=== PATIENT | female | born 1990 | race Caucasian/White ===

== ENCOUNTER 2017-09-05 19:54 | Outpatient (CLI) | payer SELFPAY ==
[2017-09-05 22:25] VITALS: BP 116/67
== END 2017-09-05 22:50 | disposition home or self-care (01) ==
LOC: TRG 19:54
PROVIDERS: ATTEND Obstetrics & Gynecology
DX: O47.1 False labor at or after 37 completed weeks of gestation (principal); Z3A.39 39 weeks gestation of pregnancy
CPT/HCPCS: 59025

== ENCOUNTER 2017-09-07 13:30 | Inpatient (IN) | payer SELFPAY ==
[2017-09-07] MEDS ORDERED: BRETHINE IVP PRN (13:52)
[2017-09-07] MEDS ORDERED: MINERAL OIL PO PRN (13:52)
[2017-09-07] MEDS ORDERED: ePHEDrine SULFATE IV PRN (13:52)
[2017-09-07] MEDS ORDERED: BRETHINE SUB-Q PRN (13:52)
[2017-09-07] MEDS ORDERED: STADOL IV PRN (13:52)
[2017-09-07] MEDS ORDERED: SUBLIMAZE IV PRN (13:52)
[2017-09-07] MEDS ORDERED: PITOCin/NS 20 UNIT/1000ML DRIP 20 UNITS/1,000 ML BAG IV SCH (14:00)
[2017-09-07] MEDS ORDERED: LACTATED RINGERS 1,000 ML IV SCH (14:00)
[2017-09-07] MEDS ORDERED: POLYCILLIN/NS 2 GM/100 ML 2 GM/100 ML BAG IV ONE ×2 (14:12→15:00)
[2017-09-07 14:24] LABS: Hematocrit 35.4 % (30.3-42.9); Hemoglobin 12.2 gm/dl (10.1-14.3); Mean Corpuscular HGB Conc 35 % (30-34); Mean Corpuscular Hemoglobin 31 pg (28-32); Mean Corpuscular Volume 89 fl (79-97); Platelet Count 195 K/mm3 (140-440); Red Blood Count 3.98 M/mm3 (3.65-5.03); Red Cell Distribution Width 15.9 % (13.2-15.2)
--- NOTE | 2017-09-07 14:47 | History and Physical Report ---
History of Present Illness Date of examination: 09/07/17 Date of admission: 09/07/17 13:31 Chief complaint: Contractions History of present illness: 26yo G 5 P 2 1 1 3 at 39 weeks 2 days here with c/o contractions since 5am and spotting. She reports positive movements but denies LOF. She has been having care at [facility] starting at 8 weeks gestation. Her course was complicated by chlamydia. She was treated and had a neg NOVA. GBS is positive. Past History Past Medical History: no pertinent history Past Surgical History: cholecystectomy (2015) [employer] History: chlamydia (diagnosed 02/23/17. Negative NOVA 07/02/17) Family/Genetic History: other (kidney disease - mother; hyperthyroidism - mother ; asthma - son) Social history: single, full code - Obstetrical History Expected Date of Delivery: 09/12/17 Actual Gestation: 39 Week(s) 2 Day(s) : 5 Para: 2 Hx # Term Pregnancies: 2 Number of Pregnancies: 1 Spontaneous Abortions: 0 Induced : 1 Number of Living Children: 2 #1 Gender: Female year: 2,007 (09/2006) Birthweight: 2.268 kg (5 lbs) Method of Delivery: Vaginal Gestational age at delivery: 40 Complications: none #2 Gender: Male year: 2,010 (08/2009) Birthweight: 1.814 kg Method of Delivery: Vaginal Gestational age at delivery: 33 Complications: other (PTL/PTB) #3 Infant Gender: Male year: 2,014 (03/2014) Birthweight: 3.175 kg (7 lbs) Method of Delivery: Vaginal Gestational age at delivery: 37 Complications: none Medications and Allergies Allergies Allergy/AdvReac Type Severity Reaction Status Date / Time No Known Allergies Allergy Unverified 09/05/17 19:58 Home Medications Medication Instructions Recorded Confirmed Last Taken Type RX: No Known Home Medications [No 09/07/17 09/07/17 Unknown History Reported Home Medications] Active Meds: Active Medications Butorphanol Tartrate (Stadol) 2 mg IV Q2H PRN PRN Reason: Pain , Severe (7-10) Ephedrine Sulfate (Ephedrine Sulfate) 10 mg IV Q2M PRN PRN Reason: Hypotension Fentanyl (Sublimaze) 100 mcg IV Q2H PRN PRN Reason: Labor Pain Lactated Ringer's (Lactated Ringers) 1,000 mls @ 125 mls/hr IV DIRECT MAX Oxytocin/Sodium Chloride (Pitocin/Ns 20 Unit/1000ml Drip) 20 units in 1,000 mls @ 125 mls/hr IV DIRECT MAX Ampicillin Sodium (Polycillin/Ns 2 Gm/100 Ml) 2 gm in 100 mls @ 100 mls/hr IV ONCE ONE; Protocol Stop: 09/07/17 15:59 Mineral Oil (Mineral Oil) 30 ml PO QHS PRN PRN Reason: Constipation Terbutaline Sulfate (Brethine) 0.25 mg SUB-Q ONCE PRN PRN Reason: Hyperstimulation/Hypertonicity Terbutaline Sulfate (Brethine) 0.25 mg IVP ONCE PRN PRN Reason: Hyperstimulation/Hypertonicity Review of Systems All systems: negative - Vital Signs Vital signs: Vital Signs Temp Resp 98.0 F 18 09/07/17 13:49 09/07/17 13:49 Temp Pulse Resp BP Pulse Ox 98.0 F 97 H 18 96 09/07/17 13:49 09/07/17 14:43 09/07/17 13:49 09/07/17 14:43 - Physical Exam Cardiovascular: Regular rate, Normal S1, Normal S2, No murmurs Lungs: Positive: Clear to auscultation, Normal air movement Abdomen: Positive: normal appearance, soft Genitourinary (Female): Positive: normal external genitalia, normal perenium Vulva: both: normal Vagina: Positive: normal moisture Uterus: Positive: normal size, normal contour - Obstetrical FHR: auscultation normal, category 1 FHR comments: baseline 150, moderate variability, 15x15 accels, no decels Cervical Dilatation: 5 (per RN) Cervical Effacement Percentage: 80 (per RN) station: -2 (per RN) Uterine Contraction Frequency (min): 2-3 Uterine Contraction Pattern: Regular Uterine Contraction Intensity: Moderate Results Result Diagrams: 09/07/17 13:57 Abnormal lab results 09/07/17 Range/Units 13:57 WBC 13.5 H (4.5-11.0) K/mm3 MCHC 35 H (30-34) % RDW 15.9 H (13.2-15.2) % All other labs normal. Assessment and Plan - Patient Problems (1) 39 weeks gestation of Current Visit: Yes Status: Acute (2) Active labor at term Current Visit: Yes Status: Acute Plan to address problem: Admit to L&D with routine labor orders Anticipate vaginal delivery (3) GBS (group B Streptococcus carrier), +RV culture, currently Current Visit: Yes Status: Acute Plan to address problem: Start ampicillin for GBS prophylaxis
[2017-09-07] MEDS ORDERED: XYLOCAINE 2% INFILTRATI ONE (18:56)
[2017-09-07] MEDS ORDERED: AMPICILLIN/NS 1 GM/50 ML 1 GM/50 ML BAG IV SCH (19:00)
--- NOTE | 2017-09-07 19:12 | Procedure Note ---
OB Delivery Note - Delivery Date of Delivery: 09/07/17 (18:52) Surgeon: ADEOLA NAVARRO (CASSIE) Estimated blood loss: 300cc - Vaginal Delivery presentation: vertex Delivery position: OA Intrapartum events: meconium (thick meconium) Delivery induction: none Delivery augmentation: rupture of membranes (AROM) Delivery monitor: external FHT, external uterine Route of delivery: Delivery placenta: spontaneous (18:55) Delivery cord: 3 umbilical vessels Episiotomy: none Delivery laceration: 1st degree (left labial) Delivery repair: vicryl (3-0 vicryl) Anesthesia: local Delivery comments: of a vigorous term 7 lbs 9 oz male at 18:52. Umbilical cord double-clamped , cut and baby handed over to awaiting NICU team. Cord blood collected. Spont. delv of placenta at 18:55, [place]-side presenting. Heavy lochia present. Fundal massage and IV Pitocin bolus initiated. Fundus F/ML/U. Moderate lochia. Placenta intact, was discarded. 1st degree left labial lac noted and repaired with 3 interrupted stitches using a 3-0 vicyl needle. Light lochia. Mom and baby in stable condition. - A at 1 minute: 8 at 5 minutes: 9 Gender: Male (7 lbs 9 oz (3437 gm); 21 in)
[2017-09-07] MEDS ORDERED: PHENERGAN PO PRN (20:04)
[2017-09-07] MEDS ORDERED: DULCOLAX PR PRN (20:04)
[2017-09-07] MEDS ORDERED: TUCKS PAD TP PRN (20:04)
[2017-09-07] MEDS ORDERED: PHENERGAN PR PRN (20:04)
[2017-09-07] MEDS ORDERED: MILK OF MAGNESIA PO PRN (20:04)
[2017-09-07] MEDS ORDERED: NORCO 5/325 PO PRN (20:04)
[2017-09-07] MEDS ORDERED: BENADRYL PO PRN (20:04)
[2017-09-07] MEDS ORDERED: LANSINOH TP PRN (20:04)
[2017-09-07] MEDS ORDERED: ZOFRAN IV PRN (20:04)
[2017-09-07] MEDS ORDERED: TYLENOL PO PRN (20:04)
[2017-09-07] MEDS ORDERED: SODIUM CHLORIDE FLUSH SYRINGE 10 ML IV SCH (21:00)
[2017-09-07] MEDS ORDERED: FEOSOL PO SCH (22:00)
[2017-09-08] MEDS ORDERED: PRENATAL VITAMIN PO SCH (10:00)
[2017-09-08 10:30] LABS: Hematocrit 32.1 % (30.3-42.9); Hemoglobin 10.6 gm/dl (10.1-14.3)
--- NOTE | 2017-09-08 10:38 | Progress Note ---
Assessment and Plan - Patient Problems (1) Status post normal vaginal delivery Current Visit: Yes Status: Acute Plan to address problem: PPD 1 - stable Continue routine PP orders Discharge to home later today Follow up at [facility] in 6 weeks for exam Subjective - Subjective Date of service: 09/08/17 Principal diagnosis: s/p Normal Spontaneous Vaginal Delivery Interval history: 26yo G 5 P 3 1 1 4 s/p uncomplicated of a viable term male on 09/07/17 @ 18: 52 Patient reports: appetite normal, voiding normally, pain well controlled, bowel movement, ambulating normally : doing well, nursing well Objective - Vital Signs Latest vital signs: Vital Signs Temp Pulse Resp BP BP Pulse Ox 09/08/17 08:04 98.7 F 86 20 97/52 94 09/08/17 04:00 98.3 F 79 18 113/72 97 09/08/17 00:35 97.8 F 85 18 102/63 97 05/18 20:51 98.3 F 93 H 18 107/67 97 0518 20:10 98.4 F 0518 20:03 83 118/70 05/05/18 19:40 88 107/65 107/65 05/05/18 19:33 88 110/65 05/05/18 19:29 90 18 113/63 113/63 0505/18 16:49 83 96 05/05/18 16:43 104 H 99 05/18 16:38 98 H 98 0505/18 16:33 77 97 05/05/18 16:29 81 96 05/05/18 16:24 86 95 05/05/18 16:23 83 94 05/05/18 16:18 84 94 05/05/18 16:14 84 94 05/05/18 16:12 82 94 05/05/18 16:08 80 94 05/05/18 16:06 83 94 05/05/18 16:03 88 94 05/05/18 15:59 93 H 94 05/05/18 15:58 89 94 05/05/18 15:53 88 94 05/05/18 15:50 86 94 05/05/18 15:48 85 96 05/05/18 15:43 84 95 05/05/18 15:38 88 97 05/05/18 15:37 96 H 94 05/05/18 15:33 73 96 09/07/17 15:29 86 94 09/07/17 15:28 85 95 09/07/17 15:23 86 95 09/07/17 15:22 81 94 09/07/17 15:18 90 95 09/07/17 15:13 92 H 95 09/07/17 15:10 81 107/63 09/07/17 15:08 85 94 09/07/17 15:05 90 93 09/07/17 15:03 96 H 95 09/07/17 14:58 91 H 97 09/07/17 14:56 97.8 F 94 H 16 108/64 09/07/17 14:53 100 H 95 09/07/17 14:49 84 94 09/07/17 14:48 96 H 96 09/07/17 14:43 97 H 96 09/07/17 14:38 97 H 94 09/07/17 14:36 85 94 09/07/17 14:33 86 96 09/07/17 13:49 98.0 F 18 Intake and Output 09/07/17 09/08/17 09/08/17 23:59 07:59 15:59 Intake Total 120 120 Output Total 900 Balance -780 120 Intake: Oral 120 120 Output: Urine 900 Void 900 Other: Total, Intake Amount 120 120 Total, Output Amount 300 # Voids Void 1 1 Estimated Blood Loss 300 - Exam Cardiovascular: Present: Regular rate, Normal S1, Normal S2, No murmurs Lungs: Present: Clear to auscultation, Normal air movement Abdomen: Present: normal appearance, soft Vulva: both: laceration/episiotomy (left labial laceration well approximated) Uterus: Present: normal, firm, fundal height below umbilicus Extremities: Present: normal Deep Tendon Reflex Grade: Normal +2 - Labs Labs: Abnormal lab results 09/07/17 Range/Units 13:57 WBC 13.5 H (4.5-11.0) K/mm3 MCHC 35 H (30-34) % RDW 15.9 H (13.2-15.2) %
--- NOTE | 2017-09-08 10:42 | Discharge Summary ---
Providers - Providers Date of Admission: 09/07/17 13:31 Date of discharge: 09/08/17 Attending physician: KEILA HOLGUIN MD Primary care physician: KEILA HOLGUIN MD Hospitalization Reason for admission: active labor, IUP at term Delivery: Episiotomy: none Laceration: 1st degree (left labial) Other procedures: none complications: none Discharge diagnosis: IUP at term delivered [place] baby: male Condition at discharge: Good Disposition: DC-01 TO HOME OR SELFCARE - Discharge Diagnoses (1) Status post normal vaginal delivery Status: Acute Plan - Provider Discharge Summary Activity: routine, no sex for 6 weeks, no heavy lifting 4 weeks, no strenuous exercise Diet: routine Instructions: routine Additional instructions: [] Smoking cessation referral if applicable(refer to patient education folder for contact #) [] Refer to [facility]'s [facility] Booklet Call your doctor immediately for: * Fever > 100.5 * Heavy vaginal bleeding ( >1 pad per hour) * Severe persistent headache * Shortness of breath * Reddened, hot, painful area to leg or breast * Drainage or odor from incision. * Keep incision clean and dry at all times and follow doctor's instructions regarding bathing/showering - Follow up plan Follow up: KEILA HOLGUIN MD [Primary Care Provider] - 6 Weeks (Follow up at [facility] in 6 weeks for exam)
[2017-09-08] MEDS: MOTRIN PO SCH ×2 (13:10→18:23)
[2017-09-08 17:55] VITALS: BP 94/58
== END 2017-09-08 22:14 | disposition home or self-care (01) | DRG 774 ==
LOC: TRG 13:30 → LD 13:31 → TRG 13:45 → OB 20:58
PROVIDERS: ADMIT Obstetrics & Gynecology; ATTEND Obstetrics & Gynecology
PROC: 10E0XZZ Delivery of Products of Conception, External Approach (ICD-10-PCS; principal; 2017-09-07)
PROC: 10907ZC Drainage of Amniotic Fluid, Therapeutic from Products of Conception, Via Natural or Artificial Opening (ICD-10-PCS; 2017-09-07)
PROC: 0HQ9XZZ Repair Perineum Skin, External Approach (ICD-10-PCS; 2017-09-07)
DX: O99.824 Streptococcus B carrier state complicating childbirth (principal); O98.82 Other maternal infectious and parasitic diseases complicating childbirth; Z37.0 Single live birth; O77.0 Labor and delivery complicated by meconium in amniotic fluid; Z3A.39 39 weeks gestation of pregnancy; Z90.49 Acquired absence of other specified parts of digestive tract; O70.0 First degree perineal laceration during delivery
CPT/HCPCS: 36415; 85014; 85018; 85027; 86592; 86850; 86900; 86901; J0290; J2590; J3010; J7120